=== PATIENT | male | born 1960 | race Two or more races ===

== ENCOUNTER 2024-07-26 10:55 | Outpatient (REF) | payer MEDICARE, MEDICAID, SELFPAY ==
[2024-07-26 11:05] VITALS: BP 151/72; PULSE 67; RESP 16; TEMP 36.6; O2SAT 98; BMI 28.7
== END 2024-07-26 10:56 | disposition home or self-care (01) ==
LOC: HO.MS 10:55
PROVIDERS: Visit Provider Ophthalmology
PROC: (CPT 66821; principal; 2024-07-26 13:50)
DX: H26.491 Other secondary cataract, right eye (principal)
CPT/HCPCS: 66821